=== PATIENT | male | born 1980 | race Caucasian/White ===

== ENCOUNTER 2018-11-03 21:37 | Emergency (ER) | payer BC ==
[~2018-11-03] VITALS: Ht 180.3 cm; Wt 93.2 kg
[2018-11-03 21:43] VITALS: BP 157/97; TEMP 97.5
[2018-11-03] MEDS ORDERED: AMOXICILLIN 8751 TAB PO (22:07)
[2018-11-03 22:30] VITALS: PULSE 79
== END 2018-11-03 22:30 | disposition home or self-care (01) ==
LOC: COL.ER 21:37
DX: H66.91 Otitis media, unspecified, right ear (principal); H72.91 Unspecified perforation of tympanic membrane, right ear
CPT/HCPCS: J8540